=== PATIENT | female | born 1955 | race Caucasian/White ===

== ENCOUNTER 2024-02-07 15:15 | Emergency (ER) | payer MEDICARE ==
[~2024-02-07] VITALS: Ht 152.4 cm; Wt 48.2 kg
[2024-02-07 15:16] VITALS: BP 132/79; PULSE 80; TEMP 97.7; O2SAT 94
[2024-02-07 17:38] VITALS: RESP 16
== END 2024-02-07 18:24 | disposition home or self-care (01) ==
LOC: ER 15:17
DX: R05.9 Cough, unspecified (principal); J44.9 Chronic obstructive pulmonary disease, unspecified; R07.89 Other chest pain; Z88.1 Allergy status to other antibiotic agents
CPT/HCPCS: 71045; 93005; 99283; A4615